=== PATIENT | female | born 1945 | race Caucasian/White ===

== ENCOUNTER 2016-11-06 21:41 | Emergency (ER) | payer OTHER ==
[2016-11-07 00:52] VITALS: BP 178/95
== END 2016-11-07 00:52 | disposition home or self-care (01) ==
LOC: ED 21:41
DX: E11.22 Type 2 diabetes mellitus with diabetic chronic kidney disease (principal); I12.9 Hypertensive chronic kidney disease with stage 1 through stage 4 chronic kidney disease, or unspecified chronic kidney disease; N18.9 Chronic kidney disease, unspecified; E86.0 Dehydration
CPT/HCPCS: J7030

== ENCOUNTER 2018-01-26 20:42 | Emergency (ER) | payer OTHER ==
[~2018-01-26] VITALS: Ht 154.9 cm; Wt 71.8 kg
[2018-01-26 21:02] VITALS: Ht 154.9 cm; Wt 71.8 kg
[2018-01-26 22:39] VITALS: BP 153/86
== END 2018-01-26 22:39 | disposition home or self-care (01) ==
LOC: ED 20:42
DX: T63.441A Toxic effect of venom of bees, accidental (unintentional), initial encounter (principal); I10 Essential (primary) hypertension; E11.9 Type 2 diabetes mellitus without complications; E78.00 Pure hypercholesterolemia, unspecified; Y92.89 Other specified places as the place of occurrence of the external cause
CPT/HCPCS: J1200